=== PATIENT | female | born 1960 | race Caucasian/White ===

== ENCOUNTER 2018-12-10 13:29 | Outpatient (CLI) | payer MEDICARE, MEDICAID ==
[~2018-12-10 13:29] MED LIST: ANAS1TAB10 PO; CLON-527 PO; FLUO20CA39 PO; HYDR-4353 PO; IBUP-24 PO; TRAZ-218 PO
== END 2018-12-10 23:59 | disposition home or self-care (01) ==
LOC: CARD DIAG 13:29
PROVIDERS: ATTEND Family Medicine
DX: I35.8 Other nonrheumatic aortic valve disorders (principal); R01.1 Cardiac murmur, unspecified; Z79.899 Other long term (current) drug therapy; Z88.2 Allergy status to sulfonamides
CPT/HCPCS: 93306

== ENCOUNTER 2019-05-10 07:05 | Emergency (ER) | payer MEDICARE, MEDICAID ==
[~2019-05-10] VITALS: Ht 157.5 cm; Wt 77.3 kg
[~2019-05-10 07:05] MED LIST changes: -TRAZ-218 PO; +TRAZ-251 PO
[2019-05-10] MEDS ORDERED: TETanus/Pertussis (Acell)/Diphther VAC/PF (Tdap-Adult) 0.5ml syringe IM ONE (07:55)
[2019-05-10] MEDS ORDERED: LIDOcaine 1% w/epiNEPHrine 1:200,000 30ml vial IM ONE (07:55)
[2019-05-10 09:15] VITALS: BP 120/60
== END 2019-05-10 09:19 | disposition home or self-care (01) ==
LOC: ER 07:06
DX: S91.311A Laceration without foreign body, right foot, initial encounter (principal); J45.909 Unspecified asthma, uncomplicated; Z88.2 Allergy status to sulfonamides; Z79.899 Other long term (current) drug therapy; W25.XXXA Contact with sharp glass, initial encounter; Y93.89 Activity, other specified; Y92.89 Other specified places as the place of occurrence of the external cause; Y99.8 Other external cause status
CPT/HCPCS: 12001; 73630; 90471; 90715; 99283; J3490

== ENCOUNTER 2019-12-06 13:49 | Outpatient (CLI) | payer MEDICARE, MEDICAID | END 2019-12-06 23:59 | disposition home or self-care (01) | LOC: CARD DIAG 13:49 | PROVIDERS: ATTEND Family Medicine | DX: I05.9 Rheumatic mitral valve disease, unspecified (principal) | CPT/HCPCS: 93306 ==

== ENCOUNTER 2022-04-29 16:54 | Emergency (ER) | payer MEDICARE, MEDICAID ==
[~2022-04-29] VITALS: Ht 157.5 cm; Wt 85.0 kg
[2022-04-29 17:03] VITALS: BP 100/66
[2022-04-29] MEDS ORDERED: HYDROcodone/acetaminophen 10/325mg tab PO ONE (18:30)
[2022-04-29] MEDS ORDERED: HYDR-3965 PO (18:32)
--- NOTE | 2022-04-29 19:29 | NUR ---
po med given
== END 2022-04-29 20:03 | disposition home or self-care (01) ==
LOC: ER 16:55
DX: S52.501A Unspecified fracture of the lower end of right radius, initial encounter for closed fracture (principal); J45.909 Unspecified asthma, uncomplicated; Z88.2 Allergy status to sulfonamides; Z79.899 Other long term (current) drug therapy; S52.614A Nondisplaced fracture of right ulna styloid process, initial encounter for closed fracture; W01.0XXA Fall on same level from slipping, tripping and stumbling without subsequent striking against object, initial encounter; Y93.89 Activity, other specified; Y92.89 Other specified places as the place of occurrence of the external cause; Y99.8 Other external cause status
CPT/HCPCS: 29105; 29125; 73080; 73110; 99284; A4565; A6449

== ENCOUNTER 2022-10-13 13:48 | Emergency (ER) | payer OTHER, MEDICARE, MEDICAID ==
[~2022-10-13] VITALS: Ht 157.5 cm; Wt 77.3 kg
[2022-10-13 15:24] VITALS: BP 143/85
[2022-10-13] MEDS ORDERED: acetaminophen 325mg tablet PO ONE (15:55)
--- NOTE | 2022-10-13 16:05 | NUR ---
PO MED GIVEN
== END 2022-10-13 16:13 | disposition home or self-care (01) ==
LOC: ER 13:48
DX: Z04.1 Encounter for examination and observation following transport accident (principal); J45.909 Unspecified asthma, uncomplicated; Z88.2 Allergy status to sulfonamides; V89.2XXA Person injured in unspecified motor-vehicle accident, traffic, initial encounter; Y93.89 Activity, other specified; Y92.89 Other specified places as the place of occurrence of the external cause; Y99.8 Other external cause status
CPT/HCPCS: 71045; 93005; 99283

== ENCOUNTER → 2023-01-09 | Emergency (ER) | payer OTHER, MEDICARE, MEDICAID ==
[~2023-01-09] VITALS: Ht 157.5 cm; Wt 78.6 kg
[2023-01-09 12:17] VITALS: BP 119/71
[2023-01-09 12:20] LABS: BASOPHILS % (AUTO) 0.3 % (0-1); EOSINOPHILS % (AUTO) 0.4 % (0-6); HEMOGLOBIN 15.5 g/dl (12.0-16.0); LYMPHOCYTES # (AUTO) 1.5 X10'3 (1.1-4.8); LYMPHOCYTES % (AUTO) 15.8 % (21-51); MEAN CORPUSCULAR HEMOGLOBIN 32.3 PG (27.0-31.0); MEAN CORPUSCULAR HGB CONC 34.5 g/dL (33.0-36.5); MEAN CORPUSCULAR VOLUME 93.6 FL (78-98); MEAN PLATELET VOLUME 7.8 FL (7.4-10.4); MONOCYTES # (AUTO) 0.6 X10'3 (0-0.9); MONOCYTES % (AUTO) 6.4 % (2-12); NEUTROPHILS # (AUTO) 7.2 X10'3 (1.8-7.7); NEUTROPHILS % (AUTO) 77.1 % (42-75); PLATELET COUNT 312 X10'3 (140-440); WHITE BLOOD COUNT 9.4 X10'3 (4.5-11.0)
[2023-01-09 12:39] LABS: ALANINE AMINOTRANSFERASE 33 U/L (12-78); ALBUMIN 4.1 G/DL (3.4-5.0); ALKALINE PHOSPHATASE 85 IU/L (46-116); ANION GAP 9 (8-16); ASPARTATE AMINO TRANSFERASE 20 U/L (10-37); BILIRUBIN,TOTAL 0.5 MG/DL (0.1-1.0); BLOOD UREA NITROGEN 20 MG/DL (7-18); BUN/CREATININE RATIO 26.7 (6.6-38.0); CHLORIDE 102 MMOL/L (99-107); CREATININE 0.75 MG/DL (0.40-0.90); GLUCOSE 103 MG/DL (70-104); SODIUM 137 MMOL/L (135-145); TOTAL CARBON DIOXIDE 25.7 MMOL/L (24-32); TOTAL PROTEIN 8.3 G/DL (6.4-8.2); eGFR 79 ML/MIN
[2023-01-09 12:47] LABS: MAGNESIUM 2.4 MG/DL (1.5-2.4)
== END | disposition left against medical advice (07) ==
LOC: ER 11:58
DX: I10 Essential (primary) hypertension (principal); R06.02 Shortness of breath; R42 Dizziness and giddiness; Z53.21 Procedure and treatment not carried out due to patient leaving prior to being seen by health care provider
CPT/HCPCS: 36415; 80053; 83735; 83880; 84484; 85025; 93005

== ENCOUNTER 2025-04-19 09:43 | Outpatient (CLI) | payer MEDICARE, MEDICAID ==
--- NOTE | 2025-04-19 12:07 | RADIOLOGY REPORT ---
ULTRASOUND SOFT TISSUE HEAD AND NECK CLINICAL INDICATION: ABNORMAL FINDINGS ON DX IMAGING OF OTH BODY STRUCTURES TECHNIQUE: Multiple real time sonographic images of the thyroid were obtained. COMPARISON: Prior exam dated none FINDINGS: The right thyroid gland measures 4.9 x 1.6 x 1.4 cm. The left thyroid gland measures approximately 4.5 x 1.3 x 1.3 cm. The isthmus measures 0.5 cm. There is a TI-RADS 3 nodule in the inferior right thyroid gland measuring 1.2 cm. IMPRESSION: A TI-RADS 3 nodule in the right inferior thyroid gland measuring 1.2 cm. Recommend follow-up thyroid ultrasound in 1 year. [employer] TI-RADS Categories and Recommendations (2017): TR1: 0 points, Benign, No FNA TR2: 2 points, Not suspicious, No FNA TR3: 3 points, Mildly suspicious, FNA if > or = 2.5 cm, Follow if > or = 1.5 cm TR4: 4-6 points, Moderately Suspicious, FNA if > or = 1.5 cm, Follow if > or = 1.0 cm TR5: 7+ points, Highly Suspicious, FNA if > or = 1.0 cm, Follow if > or = 0.5 cm Follow-up ultrasound guidelines: TR5: yearly for 5 years, if no growth or change in TI-RADS level TR4: at 1, 2, 3 and 5 years, if no growth or change in TI-RADS level TR3: at 1, 3 and 5 years, if no growth or change in TI-RADS level If increased but below threshold for FNA, repeat in one year. Source: ACR Thyroid Imaging, Reporting and Data System (TI-RADS): White Paper of the ACR TI-RADS Committee. Kaycee et al., J Am Jason Radiol 2017;14:587-595.
== END 2025-04-19 23:59 | disposition home or self-care (01) ==
LOC: RAD 09:43
PROVIDERS: ATTEND Family Medicine
DX: E04.1 Nontoxic single thyroid nodule (principal); R93.89 Abnormal findings on diagnostic imaging of other specified body structures
CPT/HCPCS: 76536